=== PATIENT | male | born 1995 | race Caucasian/White ===

== ENCOUNTER → 2023-05-28 | Outpatient (CLI) | payer OTHER | LOC: M CARPUL 13:13 | PROVIDERS: ATTEND Physician Assistant | DX: R94.30 Abnormal result of cardiovascular function study, unspecified (principal); I08.1 Rheumatic disorders of both mitral and tricuspid valves ==

== ENCOUNTER 2023-12-22 10:00 | Emergency (ER) | payer OTHER ==
[~2023-12-22] VITALS: Ht 177.8 cm; Wt 68.4 kg
[2023-12-22] MEDS: NS 1,000 ML IV ONE (12:27)
[2023-12-22 12:28] LABS: HEMATOCRIT 42.3 % (42.0-52.0); HEMOGLOBIN 14.9 g/dl (13.5-17.5); MEAN CORPUSCULAR HEMOGLOBIN 31.7 pg (27.0-33.0); MEAN CORPUSCULAR HGB CONC 35.2 g/dl (32.0-36.5); PLATELET COUNT, AUTOMATED 193 10^3/uL (150-450); WHITE BLOOD COUNT 18.1 10^3/uL (4.0-10.0)
[2023-12-22] MEDS: dexAMETHasone 20MG/5ML VIAL IV ONE (12:28)
[2023-12-22 12:39] LABS: ERYTHROCYTE SEDIMENTATION RATE 14 mm/hr (0-15)
[2023-12-22 12:59] LABS: BLOOD UREA NITROGEN 12 MG/DL (9-23); CALCIUM LEVEL 9.4 MG/DL (8.5-10.1); CARBON DIOXIDE LEVEL 30 MMOL/L (20-31); CHLORIDE LEVEL 102 MMOL/L (98-107); CREATININE FOR GFR 1.02 MG/DL (0.70-1.30); GLOMERULAR FILTRATION RATE > 60.0 (>60); GLUCOSE, FASTING 93 MG/DL (60-100); POTASSIUM SERUM 4.2 MMOL/L (3.5-5.1); SODIUM LEVEL 138 MMOL/L (136-145)
[2023-12-22] MEDS ORDERED: ISOVUE-370 76% 100ML VIAL As Ordered ONE (13:00)
[2023-12-22 13:11] LABS: MONO REFLEX EBV COMP NEGATIVE (NEGATIVE)
[2023-12-22] MEDS: AMPICILLIN SOD/SULBACTAM SOD 3 GM in D5W MINI-BAG PLUS 100 ML IV ONE (14:07)
[2023-12-22] MEDS ORDERED: AMOX875T2 PO (14:49)
[2023-12-22] MEDS ORDERED: PRED10PA2 PO (14:49)
[2023-12-22 14:58] VITALS: BP 120/70; TEMP 99; O2SAT 98
[2023-12-23 13:47] LABS: EBV AB TO NUCLEAR ANTIGEN < 18.00 U/mL (<18.00); EBV VIRAL CAPSID AG IGM < 36.00 U/mL (<36.00)
== END 2023-12-22 15:12 | disposition home or self-care (01) ==
LOC: M ED 10:00 → MERGE 10:00 → M ED 15:12
DX: J03.90 Acute tonsillitis, unspecified (principal); Z79.52 Long term (current) use of systemic steroids; Z79.2 Long term (current) use of antibiotics
CPT/HCPCS: 70491; 80048; 83605; 85027; 85652; 86140; 86308; 86664; 86665; 87040; 87880; 94760; 96365; 96375; 99284; J0295; J1100; Q9967